=== PATIENT | female | born 1935 | race Caucasian/White ===

== ENCOUNTER 2017-07-22 00:32 | Emergency (ER) | payer MEDICARE, BC ==
[2017-07-22] MEDS ORDERED: Proparacaine 0.5% Opth 15 ML BOT ONE (00:48)
== END 2017-07-22 01:07 | disposition home or self-care (01) ==
LOC: SCSER 00:32
DX: T15.11XA Foreign body in conjunctival sac, right eye, initial encounter (principal); M41.9 Scoliosis, unspecified; M85.80 Other specified disorders of bone density and structure, unspecified site; Z85.3 Personal history of malignant neoplasm of breast; Z79.899 Other long term (current) drug therapy
CPT/HCPCS: 65205

== ENCOUNTER 2017-09-05 09:44 | Outpatient (CLI) | payer MEDICARE, BC ==
[~2017-09-05 09:44] MED LIST: Iopamidol 370 76% 100 ML VIAL ONE
[2017-09-05 10:15] LABS: Estimated GFR-MDRD - POC Greater than 90
--- NOTE | 2017-09-05 12:40 | CT ---
NONCONTRAST HEAD CT: HISTORY: Midline neoplasm of the brain. Followup exam. COMPARISON: 09/13/16, 09/22/15. TECHNIQUE: A noncontrast head CT is performed from the skull base to the skull vertex. FINDINGS: Stable postsurgical change involving the right calvarium. Stable malacic and gliotic change involvin g the right frontotemporal region. No obvious intracranial masses. Evaluation is limited due to naz m-attenuation artifact. No midline shift. Basilar cisterns are patent. Brain volume is age appropr iate. Cortical cain-white matter differentiation is preserved. Adequate aeration of the sinuses. Partial opacification of the right maxillary air cells. IMPRESSION: Stable postoperative changes. No evidence of a current meningioma. Evaluation is limited by the lac k of contrast administration. POS: ROLAND
== END 2017-09-05 09:45 | disposition home or self-care (01) ==
LOC: SCSCT 09:44
PROVIDERS: ATTEND Neurological Surgery
DX: D33.2 Benign neoplasm of brain, unspecified (principal); Z98.890 Other specified postprocedural states
CPT/HCPCS: 70470; 82565

== ENCOUNTER 2019-01-17 14:18 | Outpatient (CLI) | payer BC, MEDICARE ==
[2019-01-17 15:46] LABS: #Basophils 0.1 thou/uL (0.0-0.2); #Eosinphils 0.1 thou/uL (0.0-0.7); #Lymphocytes 1.9 thou/uL (1.20-3.40); #Monocytes 0.5 thou/uL (0.11-0.59); #Neutrophils 4.4 thou/uL (1.40-6.50); %Basophils 0.8 % (0.0-1.0); %Eosinophils 1.6 % (0.0-10.0); %Lymphocytes 27.4 % (21.0-51.0); %Monocytes 6.7 % (0.0-10.0); %Neutrophils 63.4 % (42.0-75.0); Hemoglobin 13.4 g/dL (12.0-16.0); Mean Corpuscular HGB CONC 33.2 g/dL (32.0-36.0); Mean Corpuscular Hemoglobin 30.1 pg (27.0-31.0); Mean Corpuscular Volume 90.8 fL (78.0-98.0); Mean Platelet Volume 7.9 fL (7.4-10.4); Platelet Count 227 thou/uL (130-400); RBC Distribution Width 12.5 % (11.5-14.5); Red Blood Cell (RBC) Count 4.45 mill/uL (4.20-5.40)
[2019-01-17 16:12] LABS: ALT (SGPT) 18 U/L (8-55); AST (SGOT) 23 U/L (5-34); Albumin 4.1 g/dL (3.4-4.8); Alkaline Phosphatase 72 U/L (40-150); Anion Gap 12 mmol/L (10-20); BUN (Urea Nitrogen) 17 mg/dL (9.8-20.1); Bilirubin, Total 0.6 mg/dL (0.2-1.2); Calc. Creatinine Clearance 0 mL/min (70-130); Calcium 10.2 mg/dL (7.8-10.44); Carbon Dioxide 26 mmol/L (23-31); Chloride 104 mmol/L (98-107); Estimated GFR-MDRD 78; Globulin 2.2 g/dL (2.4-3.5); Glucose 141 mg/dL (83-110); Potassium 4.6 mmol/L (3.5-5.1); Protein, Total 6.3 g/dL (6.0-8.3); Sodium 137 mmol/L (136-145)
== END 2019-01-17 14:19 | disposition home or self-care (01) ==
LOC: LABBT 14:18
PROVIDERS: ATTEND Surgery
DX: Z01.818 Encounter for other preprocedural examination (principal); K40.90 Unilateral inguinal hernia, without obstruction or gangrene, not specified as recurrent
CPT/HCPCS: 80053; 85025; 93005; 93010

== ENCOUNTER 2019-01-25 05:59 | Day surgery (SDC) | payer BC, MEDICARE ==
[2019-01-17 15:45] VITALS: BMI 24.3
[2019-01-25] MEDS ORDERED: Fentanyl 100 MCG/2 ML VIAL ONE ×2 (06:42→09:14)
[2019-01-25] MEDS ORDERED: Bupivacaine/Epinephrine 0.25% 30 ML VIAL ONE (07:02)
[2019-01-25] MEDS ORDERED: Ondansetron PF 4 MG/2 ML Vial ONE (09:08)
[2019-01-25] MEDS ORDERED: PHENYLEPHRINE-NS 100 MCG/ML 10 ML SYRINGE ONE (09:08)
[2019-01-25] MEDS ORDERED: PROPOFOL 200 MG/20 ML VIAL ONE (09:08)
[2019-01-25] MEDS ORDERED: ePHEDrine 50 MG/ML VIAL ONE (09:08)
[2019-01-25] MEDS ORDERED: Lidocaine 1% PF 5 ML VIAL ONE (09:08)
[2019-01-25] MEDS ORDERED: HYDROcodone/Acetaminophen 5/325 mg Tablet ONE ×2 (10:19→10:58)
--- NOTE | 2019-01-25 13:42 | OP ---
DATE OF PROCEDURE: 01/25/2019 PREOPERATIVE DIAGNOSIS: Left inguinal hernia. PROCEDURE PERFORMED: Left inguinal hernia repair with mesh. INDICATIONS: This is an 83-year-old female, who had a painful bulge in left groin, found to have hernia. FINDINGS: She had a large incarcerated direct inguinal hernia containing a loop of sigmoid colon. DESCRIPTION OF PROCEDURE: After informed consent was obtained, the patient was taken to the operating room and given general mask anesthesia, placed in the supine position. Her groin was prepped and draped in usual fashion. Local anesthesia was infiltrated subcutaneously and deep. A transverse left inguinal incision was performed. Subcu divided sharply. The fascia was grasped and incised in direction of its fibers through the external ring. The hernia was immediately seen prolapsing through the abdominal wall. The tissue was extremely fragile and attenuated. It was obvious there was colon in this hernia, just very careful dissection was performed circumferentially to free it up to the fascial edge, but I was having trouble reducing it, so I had opened the hernia sac and then was able to separate it, part of the hernia sac was made up of the colon, so it was a sliding hernia as well. Eventually, I was able to get it reduced. Then, the peritoneum and fascia closed with a running 3-0 Vicryl. A mesh patch was then placed, sutured to the pubic tubercle medially and tucked under the external oblique fascia, secured there and then the external oblique fascia closed with a running 3-0 Vicryl. Antoinette was closed with interrupted 3-0 Vicryl, and the skin closed with a running subcuticular 4-0 Rapide. Steri-Strips applied. Sterile bandage applied. The patient tolerated the procedure well, transferred to Recovery in good condition. Sponge and needle count verified correct x2. Job ID: [id number]
== END 2019-01-25 11:40 | disposition home or self-care (01) ==
LOC: SDC 05:59
PROVIDERS: ATTEND Surgery
PROC: 0YQ60ZZ Repair Left Inguinal Region, Open Approach (ICD-10-PCS; principal; 2019-01-25)
DX: K40.90 Unilateral inguinal hernia, without obstruction or gangrene, not specified as recurrent (principal); M19.90 Unspecified osteoarthritis, unspecified site; K21.9 Gastro-esophageal reflux disease without esophagitis; Z79.82 Long term (current) use of aspirin; Z79.899 Other long term (current) drug therapy; Z88.5 Allergy status to narcotic agent
CPT/HCPCS: C1781; J0690; J2001; J2405; J2704; J3010; J3490

== ENCOUNTER 2019-10-07 04:00 | Outpatient (CLI) | payer MEDICARE, BC, OTHER ==
[2019-10-08 11:32] LABS: SARS-CoV-2 MS2 Positive; SARS-CoV-2 N Gene Negative; SARS-CoV-2 S Gene Negative; SARS-CoV-2 orf1ab Negative
== END 2019-10-07 04:01 | disposition home or self-care (01) ==
LOC: ERS 04:00
PROVIDERS: ATTEND Internal Medicine Gastroenterology
DX: Z11.59 Encounter for screening for other viral diseases (principal)
CPT/HCPCS: 87635; U0003

== ENCOUNTER 2019-10-10 08:49 | Outpatient (CLI) | payer BC, MEDICARE, OTHER ==
--- NOTE | 2019-10-10 10:46 | RAD ---
EXAM: XR UGI Air Contrast PROVIDED CLINICAL HISTORY: Gastroesophageal reflux, hiatal hernia, and history of Wan's esophagus. COMPARISON: 11/11/2015 obtained from [facility]. 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 Severe narrowing of the intervertebral disc spaces is seen at all levels of the lumbar spine, and there is left lateral subluxation of L3 on L4 and L4 o n L5. 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 Right total hip prosthesis is noted. There is moderate left hip osteoarthritis. Bowel gas pattern is nonspecific with small to mode rate amount retained fecal material seen throughout the colon. There is evidence of a hiatal hernia. Vascular calcifications are seen in the abdominal aorta. Double contrast upper GI was performed. Normal primary esophageal peristalsis was demonstrated during the exam, but tertiary contractions were seen in the esophagus. No obvious mucosal irregularity likely is seen involving the esophagus. Again noted is a moderate-sized hiatal hernia. There is area of narrowing involving the distal esophagus, but this was better appreciated on the prior exam. A 12.5 mm barium tablet was administered during the exam which transient holdup at the level of the GE junction, but the tablet eventually passed. The remainder of the stomach and visualized opacified small bowel demonstrate a normal appearance. No gastroesophageal reflux was demonstrated during this examination. IMPRESSION: 1. Moderate-sized hiatal hernia with the fundus of stomach above the level of the hemidiaphragms. Thi s hiatal hernia appears slightly larger in size when compared to the prior exam. 2. Narrowing involving the distal esophagus with transient holdup of a 12.5 mm barium tablet at the l evel of the GE junction, but the tablet eventually passed.
== END 2019-10-10 08:50 | disposition home or self-care (01) ==
LOC: RAD 08:49
PROVIDERS: ATTEND Internal Medicine Gastroenterology
DX: K21.9 Gastro-esophageal reflux disease without esophagitis (principal); Z87.19 Personal history of other diseases of the digestive system; Z11.59 Encounter for screening for other viral diseases; K44.9 Diaphragmatic hernia without obstruction or gangrene
CPT/HCPCS: 74246

== ENCOUNTER 2020-03-26 09:00 | Outpatient (CLI) | payer BC, MEDICARE ==
--- NOTE | 2020-03-26 13:22 | CT ---
CT HEAD WITH AND WITHOUT IV CONTRAST: Date: 03/26/2020 HISTORY: Prior surgery for removal of meningioma. This is a follow-up evaluation. COMPARISON: 09/05/2017. FINDINGS: Stable postoperative changes related to right parietotemporal craniotomy defect. There is significant beam hardening artifact due to metallic densities overlying the right parietal bone. There is a stab le area of encephalomalacia involving the right frontal lobe with associated gliosis. Within limitati ons for the technique of this exam, there is no intraparenchymal or extra-axial hemorrhage seen. No a cute cortical infarction, mass effect, or midline shift is identified. No abnormal areas of enhanceme nt are seen after the administration of intravenous contrast. Cerebral and cerebellar volume loss is again seen. There is stable opacification of right mastoid air cells which are not well pneumatized. No other int erval change. IMPRESSION: 1. Stable postoperative changes. 2. Stable chronic small vessel ischemic changes and cerebral and cerebellar volume loss. POS: OFF
== END 2020-03-26 09:01 | disposition home or self-care (01) ==
LOC: SCSCT 09:00
PROVIDERS: ATTEND Neurological Surgery
DX: D33.2 Benign neoplasm of brain, unspecified (principal); I67.82 Cerebral ischemia; Z98.890 Other specified postprocedural states
CPT/HCPCS: 70470